=== PATIENT | female | born 1940 | race Caucasian/White ===

== ENCOUNTER → 2019-03-22 | Outpatient (CLI) | payer OTHER, BC ==
[~2019-03-22] VITALS: Ht 157.5 cm; Wt 75.8 kg
[~2019-03-22] MED LIST: ATIVAN1 MG PO; COZAAR100 MG PO; LEVOTHYROXIN0.075 MG PO; LEXAPRO20 MG PO; NAPROSYN500 MG PO; NORCO 5-325 TA1 EACH PO; PRAVACHOL40 MG PO; PRAVASTATIN SOD10 MG PO; PROTONIX40 M1 PO; VITAMIN D1000 UNI1 PO; ZYRTEC10 M4 PO; ZYRTEC10 M5 PO
[2019-03-22 12:48] VITALS: BP 161/82
--- NOTE | 2019-03-22 12:57 | NUR ---
Pain Clinic Assessment: 1. History of Osteoarthritis: History of Rheumatoid Arthritis: 2. Height: 5 ft. 2 in. 157.5 cm. Weight: 167.0 lb. oz. 75.751 kg. Patient's BMI: 30.5 3. Vital Signs: BP: 161/82 Pulse: 85 Resp: 16 Temp: 02 Sat: 96 ECG Mon: 4. Pain Intensity: 7 5. Fall Risk: Dizziness: N Needs help standing or walking: N Fallen in the last 3 months: N Fall risk comments: 6. Patient on Blood Thinner: None 7. History of Hypertension: Y 8. Opioid Therapy greater than 6 weeks: N Opiate Contract Signed: 9. Risk Assessment Tool Provided: LOW 10. Functional Assessment Tool: 11. Recreational Drug Use: Never Drug Type: Tobacco Use: Never Smoker Tobacco Type: Amount or Packs/day: How Many Years: Alcohol Use: No Frequency: Quant:
--- NOTE | 2019-03-27 08:16 | HPC ---
[facility] [place] [address] PAIN MANAGEMENT CONSULTATION Name: ANJEL COPE Room #: REG TIEN Scarlet#: [id number] Admission: 03/22/19 ������������������ Attend Phys: Hali Cabrera MD Discharge: ������������������ Date of : 40 Report #: [id number] THIS REPORT FOR: //name// CC: Hali Espinoza DATE OF SERVICE: 03/22/2019 CHIEF COMPLAINT: Pain in the mid waist area down into the right leg and into both knees. HISTORY OF PRESENT ILLNESS: The patient is a 78-year-old female, who has been referred to the pain clinic for evaluation. She notes that her pain is worse when she is sitting in certain positions. Pain description is that of periodic, shooting, cramping, and aching. She rates it as a 7-8/10. She states that she is having pain that is radiating down into the leg, in her feet. She feels like cramping sensation. She feels as though her legs are falling asleep. She denies any change in her bowel or bladder function. She denies any new injuries. She is not taking aspirin medications. She has tried physical therapy when she had some problem with her neck about 15 years ago. She has not used a chiropractor. She is not performing exercises on a regular basis. She is limited because of her pain. She feels that her legs are weaker. She has not undergone an MRI in the recent past. PAST MEDICAL HISTORY: Hypertension, gallbladder disease, thyroid disease, hypothyroidism, leg weakness, osteopenia, hypercholesterolemia, and seasonal allergies. PAST SURGICAL HISTORY: Incisional hernia repair in 2008, laparoscopic cholecystectomy in 2006, robotic-assisted gynecological procedure in 2016, sacral perivaginal posterior repair, urethral sling, and total abdominal hysterectomy with bilateral salpingo-oophorectomy. CURRENT MEDICATIONS: Escitalopram 20 mg, lorazepam 1 mg 2-1/2 tablets, pravastatin 10 mg, levothyroxine 75 mcg, losartan 100 mg, pantoprazole 40 mg, Zyrtec 10 mg, and vitamin D3 2000 units. ALLERGIES: PENICILLIN, SULFA. SOCIAL HISTORY: The patient is retired, has not worked since 2003. REVIEW OF SYSTEMS: Generally, in good health; has fatigue, weakness, wears glasses, chronic sinus problems, nervousness, thyroid disease, [place] [address] PAIN MANAGEMENT CONSULTATION Name: ANJEL COPE Room #: REG PAULINEKrzysztof Novak#: [id number] Admission: 03/22/19 ������������������ Attend Phys: Hali Cabrera MD Discharge: ������������������ Date of : 40 Report #: [id number] PAIN CLINIC ASSESSMENT AND PQRS: 1. The patient is not being treated for osteoarthritis. She has not been treated for rheumatoid arthritis. 2. Pain intensity is 7/10. 3. Fall risk. The patient has not fallen in the last 3 months. 4. Blood thinner. The patient is not on a blood thinning medication. 5. Hypertension. The patient is being treated for hypertension. 6. Opioids greater than 6 weeks. The patient is not receiving opioid medications on a regular basis. 7. Risk assessment tool, low for opioid use. 8. Functional assessment tool, . 9. Recreational drug use. The patient denies. 10. Tobacco: The patient has never smoked. 11. Alcohol: The patient denies frequent use of alcoholic beverages. PHYSICAL EXAMINATION: GENERAL: The patient is a well-developed, well-nourished white female. She appears her stated age. She is alert and oriented x 3. Her affect is appropriate. Speech is fluent. Height is 5 feet 2 inches, weight is 167 pounds, and BMI is 30.5. VITAL SIGNS: Blood pressure is 161/82, pulse is 85, respiratory rate is 16, and room air saturation is 96%. HEENT: Normocephalic, atraumatic. Extraocular eye muscles intact. NECK: Without adenopathy or JVD. HEART: Regular rate. ABDOMEN: Nontender. Bowel sounds present. EXTREMITIES: Upper extremity muscle strength is judged to be 4+/5 for the major muscles in the ____ extremity. The patient is without significant scoliosis, kyphosis, or lordosis. The patient has pain and discomfort, which was radiating down into the back in the L5-S1 dermatomal distribution with numbness, weakness, and tingling. The patient ambulates with use of her rolling walker. LABORATORY DATA: No new laboratory values are available at the time of our interview. IMPRESSION: 1. Lumbar radiculopathy, L5-S1 dermatomal distribution with radiation down into the leg. 2. Hypertension. 3. Gallbladder disease. 4. Thyroid disease. 5. Hypothyroidism. 6. Leg weakness. 7. Osteopenia. 8. Hypercholesterolemia. 9. Seasonal allergies. [facility] [address] [place] [address] PAIN MANAGEMENT CONSULTATION Name: ANJEL COPE Room #: JUNAID ChinchillaR.#: [id number] Admission: 03/22/19 ������������������ Attend Phys: Hali Cabrera MD Discharge: ������������������ Date of : 40 Report #: [id number] RECOMMENDATIONS: We have discussed treatment options with the patient. Risks and benefits of an epidural steroid injection were discussed. They include but are not limited to infection, increased muscle soreness, headache, bleeding, worsening of pain, or spinal headache. The patient elects to proceed. PROCEDURE NOTE: The patient was taken to the procedure area. She was assisted in getting on the examination table. Her back was sterilely prepped with a Betadine solution. Fluoroscopy using anterior, posterior as well as lateral viewing were implemented. A pillow was placed under the patient's abdomen to bolster and improve positioning. The patient's back was sterilely prepped with a Betadine solution and allowed to dry. A 25-gauge needle was then advanced into this area with 0.25% bupivacaine. The L5-S1 area was infiltrated and numbed. A 17-gauge Tuohy with loss of resistance technique was used to gain access to the epidural space. There was no CSF, heme, or paresthesia. A total of 80 mg Depo-Medrol, 40 mg of triamcinolone, and 2 mL of 0.25% bupivacaine was injected. The patient tolerated the procedure well. There were no complications. She will return to the pain clinic as needed. We would like to thank you for letting us to participate in her care. We hope she continues to improve. ��������������������������������������������� <ELECTRONICALLY SIGNED> ���������������������������������������� By: Hali Cabrera MD ��������������������������������������������� 03/27/19 0816 [id number] Hali Cabrera MD /[facility]
== END | disposition home or self-care (01) ==
LOC: PAIN 06:51
DX: M54.16 Radiculopathy, lumbar region (principal); G89.29 Other chronic pain; I10 Essential (primary) hypertension; E03.9 Hypothyroidism, unspecified; E78.00 Pure hypercholesterolemia, unspecified; M85.80 Other specified disorders of bone density and structure, unspecified site; K82.9 Disease of gallbladder, unspecified; Z90.49 Acquired absence of other specified parts of digestive tract; Z90.710 Acquired absence of both cervix and uterus; Z79.899 Other long term (current) drug therapy; Z88.0 Allergy status to penicillin; Z88.2 Allergy status to sulfonamides; Z98.890 Other specified postprocedural states

== ENCOUNTER 2019-08-06 08:44 | Inpatient (IN) | payer OTHER, BC ==
[~2019-08-06] VITALS: Ht 157.5 cm; Wt 72.1 kg
[2019-08-06 08:45] VITALS: BP 148/61
[2019-08-06] MEDS ORDERED: METFORMIN HCL500 M3 PO (09:01)
[2019-08-06] MEDS ORDERED: AMARYL2 M1 PO (09:01)
[2019-08-06 09:28] LABS: ABSOLUTE NEUTROPHILS 6.3 thou/uL (1.4-8.2); BASOPHILS 0.8 % (0.0-2.0); EOSINOPHILS 1.8 % (0.0-3.0); HEMATOCRIT 36.6 % (37.0-47.0); HEMOGLOBIN 12.2 gm/dL (12.0-15.0); LYMPHOCYTES 19.5 % (24.0-44.0); MCH 27.9 pg (26.0-34.0); MCHC 33.3 g/dL (28.0-37.0); MCV 83.6 fL (80.0-100.0); MONOCYTES 7.5 % (1.0-8.0); PLATELET COUNT 256 thou/uL (150-400); POLYS 70.4 % (36.0-66.0); RBC 4.37 mil/uL (4.20-5.00)
[2019-08-06 09:32] LABS: CALCIUM 9.7 mg/dL (8.5-10.1); CREATININE 1.5 mg/dL (0.6-1.0); POTASSIUM 3.6 mmol/L (3.5-5.1)
[2019-08-06 09:38] LABS: ALBUMIN 3.1 g/dL (3.4-5.0); TOTAL BILIRUBIN 0.6 mg/dL (<0.1-1.0); TOTAL PROTEIN 6.6 g/dL (6.4-8.2)
[2019-08-06 10:01] LABS: URINE BILIRUBIN NEGATIVE (Negative); URINE BLOOD NEGATIVE (Negative); URINE CLARITY CLEAR; URINE COLOR YELLOW; URINE GLUCOSE-RANDOM* 3+ (Negative); URINE KETONES 1+ (Negative); URINE LEUKOCYTES-REFLEX TRACE (Negative); URINE NITRITE-REFLEX NEGATIVE (Negative); URINE PROTEIN (DIPSTICK) NEGATIVE (Negative); URINE SPECIFIC GRAVITY <= 1.005 (1.005-1.035); URINE UROBILINOGEN 0.2 E.U./dl (0.2-1.0)
[2019-08-06] MEDS ORDERED: INSULIN PEN NE1 EAC1 SUBQ ×2 (13:38→13:45)
[2019-08-06] MEDS ORDERED: LANTUS SOL100 UNIT/1 SUBQ ×2 (13:38→13:45)
[2019-08-06 16:55] VITALS: BP 121/59
[2019-08-06 17:41] VITALS: BP 129/76
[2019-08-06 17:59] VITALS: BP 143/64
[2019-08-06 19:13] VITALS: BP 122/49
--- NOTE | 2019-08-06 19:38 | NUR ---
MRI WAS NOT DONE DUE TO IT BEING AN ER ORDER THEREFORE MRI IS BEING PUT OFF TILL TOMORROW. WILL INFORM PROVIDER. AWAITING FURTHER ORDERS. KIRIT
[2019-08-06 21:28] LABS: CALCIUM 9.6 mg/dL (8.5-10.1); CREATININE 1.4 mg/dL (0.6-1.0); POTASSIUM 3.3 mmol/L (3.5-5.1)
[2019-08-06 23:22] VITALS: BP 118/64
[2019-08-07 02:49] VITALS: BP 143/56
--- NOTE | 2019-08-07 04:53 | NUR ---
PATIENT IS ALERT AND ORIENTED. PATIENT IS UP 1-2 ASSIST. PATIENTS LBM WAS THE 14TH. PATIENT IS PENDING MRI THIS AM. PATIENT IS NSR ON TELE. PATIENT IS ROOM AIR. PATIENT USES WALKER AT HOME. PATIENT LIVES AT HOME WITH DAUGHTER. PATIENT IS RESTING COMFORTABLY IN BED. WCM. PATIENT DENIES PAIN. PATIENT IS PROGRESSING TO GOALS.
[2019-08-07 07:44] VITALS: BP 149/68
[2019-08-07 08:39] LABS: HEMOGLOBIN 12.9 gm/dL (12.0-15.0); MCH 27.7 pg (26.0-34.0); MCHC 33.1 g/dL (28.0-37.0); MCV 83.6 fL (80.0-100.0); RBC 4.66 mil/uL (4.20-5.00); RDW 14.8 % (10.5-14.5); WBC 8.1 thou/uL (4.0-11.0)
[2019-08-07 08:55] LABS: ANION GAP 17 mmol/L (7-16); BUN 8 mg/dL (7-18); CALCIUM 9.2 mg/dL (8.5-10.1); CHLORIDE 101 mmol/L (98-107); CO2 20 mmol/L (21-32); CREATININE 1.2 mg/dL (0.6-1.0); GLUCOSE 223 mg/dL (74-106); MAGNESIUM 1.3 mg/dL (1.8-2.4); POTASSIUM 3.6 mmol/L (3.5-5.1); SODIUM 138 mmol/L (136-145)
--- NOTE | 2019-08-07 12:04 | NUR ---
Nutrition: Admit: new DM, weakness. Pt assessed d/t moderate risk w/ new DM diagnosis and provider consult. Completed 30 mins nutrition ed regarding dx. Pt reports new dx in last couple weeks, started on metformin and glimepiride. Per chart review, EMR states A1c was > 15% at PCP office. BGs 08/06 only 92, 158 mg/dl. Pt notes slight appetite decrease lately - could be possible side effect of metformin; also notes diarrhea. Discussed these symptoms. Used to drink lots of sweet tea and carry out food via "[employer]." Now drinking water, coffee w/ Splenda, plain iced tea. Educated on what DM II is, how her meds are helping, better eating practices and food group pairings. Used Plate Method and briefly touched on food labels. Encouraged ongoing OP education. Informed of [employer] Medicare benefits, local support group. Low nutrition risk.
--- NOTE | 2019-08-07 15:02 | NUR ---
INITIAL ASSESSMENT: Received consult. SW reviewed chart and spoke with nursing and attending physician. Pt was admitted from home due to weakness/new onset DM. Pt was recently diagnosed with DM. Pt with hx of anxiety/panic disorder. Psych consulted to evaluate pt. Pt would benefit from post-acute care. SW met with pt at bedside. Introduced role of SW. Pt is alert/orientated. Pt reports she lives at home with her dtr and grandson. There are 3 steps to enter the home. All of pt's needs are met on the ground level. Pt has a cane and rollator walker. Pt states she has been week for a while. Pt reports no hx of HH services or prior SNF/Rehab placement. Pt's PCP is Dr. Espinoza. SW provided pt with list of SNFs for review and to discuss with family. 5N consulted to evaluate pt. SW is following to assist as needed with discharge planning.
[2019-08-07 15:12] VITALS: BP 108/66
--- NOTE | 2019-08-07 18:33 | NUR ---
Patient worked with PT to get up to the commode and she did so successfully. Patient got up to the commode for a second time (2 assist) and struggled to move her feet. She was unable to walk 5 feet from the commode to the bed. Patient was then settled on a recliner. Ronaldo silvestre is working towards her discharge goals.
[2019-08-07 19:56] VITALS: BP 126/59
--- NOTE | 2019-08-08 04:00 | NUR ---
PATIENT IS ALERT AND ORIENTED. PATIENT GETS ANXIOUS AT TIME. PATIENT IS MAX 2 PERSON ASSIST PIVIOT TRANSFER. PATIENTS LBM WAS THE 14TH. PATIENT IS NSR ON TELE. PATIENT IS ACHS FOR DM. DR MOLINA STARTED PATIENT ON NEW MEDICATION. POSSIBLE DISCHARGE TODAY. WCM. PATIENT IS PROGRESSING TO GOALS. ROOM AIR. DENIES PAIN.
[2019-08-08 04:03] VITALS: BP 149/70
[2019-08-08 07:38] VITALS: BP 147/53
[2019-08-08 08:46] LABS: CALCIUM 9.1 mg/dL (8.5-10.1); CREATININE 1.1 mg/dL (0.6-1.0); POTASSIUM 3.6 mmol/L (3.5-5.1)
[2019-08-08 11:23] VITALS: BP 128/75
--- NOTE | 2019-08-08 14:25 | HC ---
[facility] [address] [address] CONSULTATION Name: ANJEL COPE Room #: 351-[address] [facility] [place] .R.#: [id number] Admission: 08/06/19 Attend Phys: Dillon Lewis MD Discharge: Date of : 40 Report #: [id number] THIS REPORT FOR: //name// CC: Dillon Espinoza DATE OF SERVICE: 08/07/2019 CONSULTING PHYSICIAN: Dr. Grover. REASON FOR CONSULTATION: Uncontrolled type 2 diabetes mellitus. HISTORY OF PRESENT ILLNESS: This is a very nice 78-year-old female patient whose medical background is rather remarkable for hypothyroidism, hypertension, hyperlipidemia and GERD. The patient notes that she was diagnosed as having diabetes mellitus for the first time last week after having a routine check with her physician, Dr. Espinoza. Reportedly, her hemoglobin A1c was over 15% and her daily blood glucose values were often in the 400-500 mg/dL range at that time. Subsequently, the patient was given dual therapy with metformin and glimepiride, but admits to the fact that she had not monitored her blood glucose values since then. However, upon arrival to the ER, she was found to have blood glucose values in the 300s. The patient notes that she had experienced extreme weakness and gait instability before coming to the ER and when she was actually about to be discharged home from the ER, she indicated that she was unable to support her weight and walk straight which resulted in propagating admission here at [facility]. The patient notes that she has had some work with the neurologist in the past and that she was found to have gait disturbance is somewhat related to severe anxiety and panic disorder. REVIEW OF SYSTEMS: CONSTITUTIONAL: Fatigue, weakness, but no fever or chills. PULMONARY: Intermittent issues with shortness of breath and cough, but no hemoptysis. CARDIAC: Intermittent palpitations, but not chest pain, no major issues with leg swelling. No syncope. GASTROINTESTINAL: Intermittent abdominal discomfort and nausea, but no vomiting or major changes in bowel movement frequency. NEUROLOGY: Gait disturbances, weakness. Occasional lightheadedness, but not seizure activity. SKIN: Negative for rash, ulceration or other major abnormalities. PSYCH: Anxiety and intermittent issues with panic attacks. Otherwise, review of system is noncontributory other than what is mentioned in HPI. [address] [address] CONSULTATION Name: ANJEL COPE Stacia Room #: 351-P [facility] [place] M.R.#: [id number] Admission: 08/06/19 Attend Phys: Dillon Lewis MD Discharge: Date of : 40 Report #: [id number] PAST MEDICAL HISTORY: 1. Hypertension. 2. Gastroesophageal reflux disease. 3. Hyperlipidemia. 4. Osteoarthritis. 5. Hypothyroidism. 6. Vitamin D deficiency. 7. Anxiety. 8. New diagnosis of type 2 diabetes mellitus. REPORTED MEDICATIONS: Levothyroxine 75 mcg daily, vitamin D3 1000 units b.i.d., metformin 500 mg b.i.d., lorazepam 1 mg t.i.d., Lexapro 20 mg daily, losartan 100 mg daily, pravastatin 10 mg daily, pantoprazole 40 mg daily. ALLERGIES: PENICILLIN AND SULFA. PAST SURGICAL HISTORY: Hernia surgery, prolapsed bladder, gallbladder removal and a complete hysterectomy. SOCIAL HISTORY: The patient denies use of tobacco or alcohol. She has two children and she lives with her daughter. PHYSICAL EXAMINATION: GENERAL: Pleasant elderly female patient who is not in apparent pain or distress. She is sitting comfortably in her chair. VITAL SIGNS: Blood pressure is 149/68 mmHg, heart rate is 80 beats per minute, respiration 18 per minute, temperature 36.7 degrees. CONSTITUTIONAL: She appears comfortable, not in apparent distress, sitting in her chair upright. HEENT: Anicteric sclerae. Intact extraocular motions. NECK: Supple, without JVD, carotid bruits or lymphadenopathy. I do not appreciate thyromegaly. CHEST: Noted for moderate air entry bilaterally with scattered rales, but not crackles or wheezes. HEART: Regular rate and rhythm without murmurs or gallops. ABDOMEN: Soft and lax without tenderness or organomegaly. She has no guarding. Active bowel sounds. EXTREMITIES: Lower extremity exam shows trace ankle edema. No skin breaks, ulcerations or other major deformities. NEUROLOGIC: Awake, alert and oriented to time, place and person, interactive, grossly nonfocal exam. PSYCHIATRIC: Pleasant, interactive, appropriate. Normal mood and affect. LABORATORY DATA: Hemoglobin A1c is reported to have been at more than 15 last week. Blood sugar on arrival was 291, dropped to a low of 92, but today is at 158 and 177 mg/dL. Sodium 138, potassium 3.6, chloride 101, CO2 of 20, anion [address] [address] CONSULTATION Name: ANJEL COPE Room #: 351-P [facility] [place] M.R.#: [id number] Admission: 08/06/19 Attend Phys: Dillon Lewis MD Discharge: Date of : 40 Report #: [id number] gap 17, BUN 8, creatinine 1.2, AST 17, lipase 70, total bilirubin 0.6, calcium 9.2, magnesium 1.3. Alkaline phosphatase is 109, total protein 6.6, albumin 3.1, GFR 43, total CPK 159. CRP 6.8, white blood count 8.1, hemoglobin 12.9, hematocrit 39, platelets 250. TSH is 7.714. ASSESSMENT AND PLAN: 1. Type 2 diabetes mellitus. As noted above, the patient now carries a new diagnosis of type 2 diabetes mellitus with severe hyperglycemia as indicated by her recorded hemoglobin A1c and initial blood glucose values. I fully agree with Dr. Espinoza's decision to move on with dual oral therapy with renally adjusted dose of metformin 500 mg b.i.d. and glimepiride, which is renally a safe anyway. As noted above, the patient has continued to have issues with severe hyperglycemia, which is expected in the face of her starting 0.500 mg/dL. That said, initial therapy with insulin including in the form of a single long-acting insulin daily injection might actually help the patient improve fair blood glucose control at the desired speed and invoke more efficiency of her stated oral antidiabetic agents. That said, I will place the patient on Lantus insulin 12 units q.p.m. She supposedly got 14 units in the ER yesterday as per my discussion with the ER physician when she was there. We will continue with metformin 500 mg b.i.d. and I will hold off on glimepiride for the time being until we ensure her stability. I stressed the importance of home based blood glucose monitoring and routine followup with Dr. Espinoza, so as to ensure continued stability of her disease and I counseled the patient about the importance of containing and providing a diabetic complications both microvascular and macrovascular. In the immediate setting, I will place the patient on Lantus insulin 12 units q.p.m., Humalog supplemental scale low intensity, metformin 500 mg b.i.d. in addition to a blood glucose monitoring before meals and at bedtime. 2. Hypothyroidism. The patient has a longstanding history of hypothyroidism and is maintained on levothyroxine dose of 75 mcg/dL. Her TSH was just about 7, which will prompt me to increase her levothyroxine dose to 100 mcg daily. Followup of her TFTs would be needed in 4-6 weeks from now. 3. Hypertension. The patient's level of blood pressure control is acceptable for the time being. She is to continue with her current regimen. 4. Hyperlipidemia. The patient is currently on atorvastatin therapy and tolerates it well, she is to continue the same. I certainly appreciate this consultation by Dr. Grover and appreciate the opportunity to participate in the care of Dr. Espinoza's. <ELECTRONICALLY SIGNED> By: Reema Roberts MD 08/08/19 1425 [id number] Reema Roberts MD /nt
--- NOTE | 2019-08-08 14:40 | NUR ---
DISCHARGE PLANNING. ANTICIPATED DISCHARGE PLANNED FOR TOMORROW. PATIENT REFERRAL FAXED TO [facility] PER PATIENT REQUEST. CALL PLACED TO [facility] ADMISSIONS, TO NOTIFY OF REFERRAL AND ANTICIPATED DISCHARGE FOR TOMORROE. CALL PLACED TO [facility] GALLO FOR [facility], TO NOTIFY. BOTH TO REVIEW PATIENT CLINICALS AND NOTIFY CM ONCE COMPLETED. UNIT SW AWARE. FOLLOWING.
[2019-08-08 15:09] VITALS: BP 120/64
--- NOTE | 2019-08-08 16:17 | NUR ---
[facility] visited with the pt at bedside and her dtr via phone to discuss rehab options, medicare benefits and pt's goals. MRI of her thoracic ordered. [facility] is evaluating along with referrals to [facility]. [facility] liason here to visit. [facility] are indicating they can accept. [facility] does not have any beds available at this time. Pt and her dtr prefer acute rehab vs snf. Pt's goal is to return to her plof and be able to go home with her dtr after rehab. The pt is alone during the daytime while her dtr works. She is normally indep with gait and adl's and some iadl's with a rwalker. She is a&ox4, occasionally forgetful. SNF listing and private duty discussed should the pt not be able to return home alone post rehab stay. Will regroup with all parties in the am. Possible dc to acute rehab tomorrow.
[2019-08-08 19:09] VITALS: BP 126/69
--- NOTE | 2019-08-08 19:51 | NUR ---
Dr. Ulloa requested nursing make an attempt to get patient's neurological history sent to us. After investigation, the notes were found in the chart. The notes were placed under H&P and nursing passed this information via message through answering service to Dr. Ulloa.
[2019-08-09 03:30] VITALS: BP 144/79
--- NOTE | 2019-08-09 05:45 | NUR ---
PATIENT IS ALERT AND ORIENTED. PATIENT IS UP TIMES TWO. PATIENT IS PENDING INSURANCE APPROVAL FOR SKILLED DUE TO LEG WEAKNESS. PATIENT GETS ANXIOUS AT TIMES BUT IS REDIRECTABLE. PATIENT IS NSR ON TELE. PATIENT IS ACHS ACCUCHECKS. PATIENT IS PENDING MRI THIS AM. PATIENT DENIES PAIN. PATIENT IS RESTING COMFORTABLY IN BED. WCM. PATIENT IS PROGRESSING TO GOALS.
[2019-08-09 07:17] VITALS: BP 142/71
[2019-08-09] MEDS ORDERED: SYNTHROID100 MC1 PO (12:50)
[2019-08-09] MEDS ORDERED: BUSPIRONE HCL5 MG PO (12:50)
[2019-08-09] MEDS ORDERED: VITAMIN B-12100 MC1 PO (12:50)
[2019-08-09 15:29] VITALS: BP 137/77
--- NOTE | 2019-08-09 20:31 | NUR ---
pt is A&OX3, PT'S VS are stable, pt 's waekness has improved, pt was d/c to rehab faclity at 1630pm, RN has giving report.
--- NOTE | 2019-08-10 19:16 | HC ---
[facility] [place] [address] CONSULTATION Name: ANJEL COPE Room #: 351-P [facility] IN .R.#: [id number] Admission: 08/06/19 Attend Phys: Dillon Lewis MD Discharge: 08/09/19 Date of : 40 Report #: [id number] THIS REPORT FOR: //name// CC: [facility] DATE OF SERVICE: 08/07/2019 HISTORY OF PRESENT ILLNESS: A 78-year-old female patient who was evaluated by me for ambulation difficulty. The patient was discussed with Dr. Mcdaneil, who very kindly updated me about the patient's history in detail. I also reviewed his detailed note in the chart. This patient has seen neurologist in the past. Dr. Mcdaniel had a note from them. It is just a progress note, but it does not tell us what they did, but that note indicates that she was evaluated for ambulation difficulty and weakness in the lower extremities and she had workup including spinal tap and ultimately diagnosed with anxiety-related problems. She said she has continued to become worse, but may have become worse in the last month or so more rapidly. She has been diagnosed with new onset diabetes, which is pretty severe and that is being controlled. Her diet has not been good. It does not look like it affected the patient's memory because she indicates her memory is reasonable. A 14-point review of systems was carried out and she does not complain of any eye, ENT, cardiac, respiratory, GI, , constitutional, dermatological, hematological, psychiatric, throat, allergic symptoms associated with present symptomatology. She does have some pain in multiple joints. PAST MEDICAL HISTORY: Positive for ambulation difficulties, which has been going on for some time. FAMILY HISTORY: Negative for any early age stroke. SOCIAL HISTORY: She indicates she lives with her daughter. PHYSICAL EXAMINATION: Indicates she is alert and responsive. She can follow simple commands. She is oriented and she appeared to have reasonable memory. Cranial nerve examination 2-12 looks unremarkable. Upper extremities examination appears unremarkable. Lower extremity examination does indicate weakness. It is generalized weakness involving both lower extremities. Reflexes are diminished and look like they were okay when she saw a neurologist last. Position and touch looks intact. Tone looks symmetrical. I could not look at the fundus and there does not appear to be cerebellar sign. Cardiac examination is unremarkable. No respiratory difficulty or rhonchi were noticed. The patient has no thyroid mass. She is moderately built individual. Blood pressure is 149/68, respiration is 18, pulse is 80, temperature is 98.1. Pulses are palpable. [address] [address] CONSULTATION Name: ANJEL COPE Room #: [address] [place] [address].#: [id number] Admission: 08/06/19 Attend Phys: Dillon Lewis MD Discharge: 08/09/19 Date of : 40 Report #: [id number] LABORATORY DATA: GFR is low at 43 and TSH is high. Vitamin B12 is normal. She did have a CT scan of the head during this admission, which shows some age-related finding, but nothing which can explain the patient's symptoms. IMPRESSION AND PLAN: This patient has progressive ambulation difficulty for about more than 4 years. Present aggravation is probably because of the patient's uncontrolled, newly diagnosed diabetes causing neuropathy. She does have some minor abnormalities like kidney function being borderline and TSH was high, but main aggravating factor will be probably diabetic neuropathy. She had an extensive workup at [facility]. My emphasis will be to get the records from [facility] rather than doing all the workup. She will need an EMG sometime if she did not have one. I suspected a spinal tap looking for increased protein for CIDP assuming EMG was done. She will need some workup of the lumbar and thoracic spine. Instead of ordering the workup now, we will await the records from [facility] and then do the workup which they did not do. Thank you very much for this referral. <ELECTRONICALLY SIGNED> By: Alexandre Ulloa MD 08/10/19 [id number] Alexandre Ulloa MD /nt
--- NOTE | 2019-08-20 10:39 | HC ---
[facility] [place] [address] CONSULTATION Name: ANJEL COPE Room #: 351-P [facility] IN ..#: [id number] Admission: 08/06/19 Attend Phys: Dillon Lewis MD Discharge: 08/09/19 Date of : 40 Report #: [id number] THIS REPORT FOR: //name// CC: Dillon Espinzoa DATE OF SERVICE: 08/07/2019 HISTORY OF PRESENT ILLNESS: The patient is a 78-year-old white female who was admitted on 08/06/2019 through the Emergency Department with increased right lower extremity weakness. She further clarified that it is right lower extremity with also some left lower extremity weakness. She notes some decreased sensation of her toes. She had been unable to stand on her left foot because it was twisting and she was complaining of some weakness and dragging her right lower extremity yesterday. The patient has a new diagnosis of diabetes mellitus. She regularly follows with Dr. Espinoza. She has been admitted for further evaluation. She has multiple consultants including Neurology and Endocrinology, Geriatrics and we are seeing her in rehabilitation medicine consultation. PAST MEDICAL HISTORY: Her prior medical history includes recently diagnosed and severely uncontrolled diabetes mellitus. She had a hemoglobin A1c of 15 and apparently just recently started eating [employer] and [employer] type services. She was started on metformin and Amaryl. The patient has had a history of anxiety and gait disturbance in the past and has followed with Neurology, Dr. Rockwell. She had a thorough evaluation as an outpatient with MRI, CSF and it was felt that anxiety/panic disorder and fear of falling were all contributory. She also has seen Psychology in this regard. Dr. Jen Brooks felt. She was noted to have been maintained on Lexapro and lorazepam for her anxiety and needs. ALLERGIES: PENICILLIN AND SULFA. PAST SURGICAL HISTORY: Includes hernia repair surgery, prolapse gallbladder removed. Complete hysterectomy. MEDICATIONS: Please see the full medication listing. HABITS: No history of tobacco or alcohol abuse. SOCIAL HISTORY: The patient lives in a house with her daughter and grandson. The daughter works during the day. The patient's bedroom is on the ground floor. She uses a walker. There are 4 steps in. She is typically able to ambulate independently with a walker in the home setting. [address] [address] CONSULTATION Name: ANJEL COPE Room #: 351-P [facility].#: [id number] Admission: 08/06/19 Attend Phys: Dillon Lewis MD Discharge: 08/09/19 Date of : 40 Report #: [id number] REVIEW OF SYSTEMS: Did not offer any current complaints of chest pain, shortness of breath or abdominal discomfort. She does note the distal lower extremity numbness involving her toes. PHYSICAL EXAMINATION: GENERAL: She is a pleasant 78-year-old female, in no obvious distress. VITAL SIGNS: Last recorded temperature 98.1, pulse 80, respirations 18, blood pressure 149/68. NEUROLOGIC: The patient is alert, follows basic 1 step commands. Facies are symmetric. EOMs are full. Functional range of motion of both upper extremities without obvious focal weakness. DTRs are trace to 1. Lower extremities, no focal calf swelling. Strength of the lower extremities is probably at least a grade 4-/5 symmetric. DTRs are trace. Sensation might be slightly decreased to proprioception right large toe. Therapies will be getting her up to assess her functional mobility. ASSESSMENT: A 78-year-old white female with the following problems: 1. Acute on chronic lower extremity weakness. MRI of the brain is negative. She has had a prior history of gait disturbance secondary to anxiety from prior Neurologic evaluation. 2. Diabetes mellitus with significantly elevated hemoglobin A1c as noted above. 3. Hypothyroidism. 4. Hypertension. 5. Hyperlipidemia. 6. Gastroesophageal reflux disease. 7. Vitamin D deficiency. PLAN: Neurology is consulted along with the other physician consultants. Therapy is to evaluate. We will need to see what her overall function is. Rehab unit beds are tight, but we will be glad to follow along with you. <ELECTRONICALLY SIGNED> By: Kings Quigley MD 08/20/19 [id number] Kings Quigley MD /[facility]
== END 2019-08-09 17:41 | DRG 637 ==
LOC: ER 08:44 → 3W 16:11 → EROBS 16:11 → 3W 17:40
PROVIDERS: Emergency Medicine; Internal Medicine; ADMIT Hospitalist
DX: E11.65 Type 2 diabetes mellitus with hyperglycemia (principal); N17.0 Acute kidney failure with tubular necrosis; I10 Essential (primary) hypertension; K21.9 Gastro-esophageal reflux disease without esophagitis; E55.9 Vitamin D deficiency, unspecified; F41.9 Anxiety disorder, unspecified; E03.9 Hypothyroidism, unspecified; E78.5 Hyperlipidemia, unspecified; M19.90 Unspecified osteoarthritis, unspecified site; E66.9 Obesity, unspecified; F41.0 Panic disorder [episodic paroxysmal anxiety]; Z60.2 Problems related to living alone; Z90.49 Acquired absence of other specified parts of digestive tract; Z88.0 Allergy status to penicillin; Z88.2 Allergy status to sulfonamides; Z68.29 Body mass index [BMI] 29.0-29.9, adult; Z23 Encounter for immunization
CPT/HCPCS: 10879

== ENCOUNTER → 2020-05-08 | Emergency (ER) | payer OTHER, BC ==
[~2020-05-08] VITALS: Ht 172.7 cm; Wt 72.6 kg
[~2020-05-08] MED LIST changes: +AMARYL2 M1 PO; +BUSPIRONE HCL5 MG PO; +DOXYCYCLINE 10100 MG PO; +INSULIN PEN NE1 EAC1 SUBQ; +LANTUS SOL100 UNIT/1 SUBQ; +METFORMIN HCL500 M3 PO; +SYNTHROID100 MC1 PO; +VITAMIN B-12100 MC1 PO
[2020-05-08 17:28] VITALS: BP 142/59
== END ==
LOC: ER 15:57
DX: S61.216A Laceration without foreign body of right little finger without damage to nail, initial encounter (principal); E11.9 Type 2 diabetes mellitus without complications; Z88.0 Allergy status to penicillin; Z88.2 Allergy status to sulfonamides; Z79.899 Other long term (current) drug therapy; Z98.890 Other specified postprocedural states; W55.01XA Bitten by cat, initial encounter; Y93.89 Activity, other specified; Y92.89 Other specified places as the place of occurrence of the external cause; Y99.9 Unspecified external cause status